=== PATIENT | female | born 1990 ===

== ENCOUNTER 2021-11-16 05:37 | Day surgery (SDC) | payer OTHER ==
[~2021-11-16] VITALS: Ht 170.2 cm; Wt 146.1 kg
[~2021-11-16 05:37] MED LIST: ADVIL PO; FLONASE16 GM
== END 2021-11-16 16:25 | disposition home or self-care (01) ==
LOC: CIR.AMB 05:37
PROVIDERS: ATTEND Otolaryngology Otology & Neurotology
DX: H71.22 Cholesteatoma of mastoid, left ear (principal); Z20.822 Contact with and (suspected) exposure to COVID-19; Z86.16 Personal history of COVID-19; E66.01 Morbid (severe) obesity due to excess calories